=== PATIENT | female | born 1955 | race Caucasian/White ===

== ENCOUNTER 2019-01-30 07:32 | Inpatient (IN) ==
[2019-01-30] MEDS ORDERED: NORMAL SALINE 1,000 ML IV ONE (07:38)
[2019-01-30] MEDS ORDERED: ONDANSETRON HCL/PF 2 MG/ML VIAL IV ONE (07:38)
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
[2019-01-30 08:15] LABS: Hematocrit 37.4 % (37.0-47.0); Mean Cell Volume 113.3 fl (78-100); Mean Corpuscular Hemoglobin 39.4 pg (27-31); Mean Corpuscular Hgb Conc 34.8 g/dl (32-36); Neutrophil # 3.4 K/mm3 (1.3-6.0); Neutrophil % 43.7 % (42-75.0); Platelet Count 341 K/mm3 (150-450); Red Cell Distribution Width 13.9 % (11.5-14.0); White Blood Count 7.8 K/mm3 (4.0-10.5)
[2019-01-30 08:30] LABS: Albumin * 1.9 gm/dl (3.4-5.0); Anion Gap 13.3 mmol/L (6.8-13.8); BUN/Creatinine Ratio 16.7 (9.0-21.6); Bilirubin, Total 0.6 mg/dL (0.0-1.1); Ca. Corrected For Albumin 9.5 mg/dL (8.4-10.2); Calcium * 8.1 mg/dL (7.9-10.9); Carbon Dioxide 25.8 mmol/L (24-32.6); Potassium 4.1 mmol/L (3.4-4.6); Total Protein 5.4 gm/dL (6.2-8.2)
[2019-01-30 09:12] LABS: Troponin I Less than 0.017 ng/mL (0.00-0.10)
[2019-01-30 09:15] LABS: BNP * 386 pg/mL (5-325)
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
[2019-01-30 13:18] LABS: Partial Thrombolplastin Time 23.8 Seconds (24-32)
[2019-01-30 13:27] LABS: INR 1.29 INR (0.92-1.08); Prothrombin Time (Patient) 12.6 Seconds (9.1-10.7)
[2019-01-30 15:39] LABS: Peritoneal Fluid Uric Acid 4.8 mg/dL
[2019-01-30 15:52] LABS: Body Fluid WBC 63 /uL (0-1000)
[2019-01-30 15:53] LABS: Body Fluid Appearance SLIGHTLY CLOUDY (CLEAR); Body Fluid Color PALE YELLOW (COLORLESS)
[2019-01-30] MEDS: FUROSEMIDE 40 MG TABLET PO SCH (17:07)
--- NOTE | 2019-01-30 18:08 | ANES ---
Anesthesia Procedure Note Procedure Note: ANESTHESIA PROCEDURE NOTE Date of Procedure: [01/30/2019 Time of procedure: 10 AM. Performed by: MOE Sepulveda CRNA, MSN Preprocedure diagnosis: Mediastinal widening, severe hypertension, consider dissecting aortic aneurysm. Post procedure diagnosis: Same. Procedure: Venipuncture for IV access. Indications: Lack of venous access potential severe vascular impairment. Findings: See below. Details of the procedure: I was called to the emergency department with reports that Ms. Wheatley had only a 24-gauge peripheral IV intact and was in need of an 18-gauge IV for CT scanning purposes. No ultrasound machine was available at this time and the potential of a serious vascular emergency was looming. I explained the options to the emergency room staff and physician as well as Dr. Jeanette Mosley who was also present. Considering the gravity of the situation as presented, I opted for an internal jugular insertion of an 18-gauge IV catheter. After explaining the procedure to the patient, she was placed in slight Trendelenburg, the neck was prepped with chlorhexidine, and after the right carotid artery was identified, using a 27-gauge needle I injected approximately 0.5 mL of 1% lidocaine solution. After initial injection I used the 27-gauge needle as a seeker needle, with which I was easily able to withdraw blood, appearing to be venous in nature. The local needle and syringe was removed and an 18-gauge IV was inserted, I would estimate that the needle traveled to half of its distance under the skin prior to reaching the internal jugular. The IV was flushed with ease using saline solution and secured in place. I then reported the nature of the procedure and the positioning of the 18-gauge needle to the staff and attending ER physician. EBL: Minimal. Fluids: N/A. Specimen: N/A. Post procedure condition: The patient tolerated the procedure well. No compl ications were noted. Thank you for this consultation. Josef Pavon CRNA, ARNP, MSN
[2019-01-30 21:14] LABS: Urine Bilirubin 1 mg/dl (NEGATIVE); Urine Ketone Negative (NEGATIVE); Urine Nitrite Negative (NEGATIVE); Urine Protein Negative (NEGATIVE); Urine Specific Gravity <=1.005 SP.GR. (1.005-1.010); Urine Urobilinogen 4 EU/dl (NORMAL); Urine pH 5.5 pH (5.0-7.0)
[2019-01-30 21:30] LABS: Urine Appearance Clear (CLEAR); Urine Blood 5 /ul (NEGATIVE); Urine Color Yellow
[2019-01-30 21:31] LABS: Urine Bacteria TRACE; Urine RBC TRACE /hpf (0-5); Urine WBC None Seen /hpf (0-5)
--- NOTE | 2019-01-31 07:49 | PN ---
Subjective - Date and Time Seen Date: 01/31/19 Time: 07:34 Subjective Narrative: This morning, Chantelle complains of having a terrible night due to leg pain. It resolves on its own. She tried to eat some breakfast, but she lost her appetite. She denies chest pain, shortness of breath, abdominal pain. She reports not feeling any different after 1.9 L of fluid were taken off her abdomen yesterday in a paracentesis. Objective - Review of Systems Generalized/Overall Review: Reports: Weakness Respiratory: Denies: Cough, Shortness of Breath Cardiac: Denies: Chest Pain, Edema Abdominal: Reports: Other - decreased appetite. Denies: Nausea Genitourinary Symptoms: Reports: No Symptoms Reported - Vitals Vitals: Last Vital Signs Temp 36.6 C 01/31/19 07:08 Pulse 89 01/31/19 07:08 Resp 20 01/31/19 07:08 BP 125/81 01/31/19 07:08 Pulse Ox 99 01/31/19 07:08 - Abnormal Lab Findings Abnormal Lab Findings: Abnormal Lab Results 01/30/19 01/30/19 01/30/19 Range/Units 07:45 07:45 07:45 RBC 3.30 L (4.2-5.4) M/mm3 MCV 113.3 H (78-100) fl MCH 39.4 H (27-31) pg Monocytes % 10.2 H (0.0-9) % PT (9.1-10.7) Seconds INR (Anticoag Therapy) (0.92-1.08) INR PTT ([place]) (24-32) Seconds D-Dimer (0.19-0.49) ug/mL ALT 11 L (19-67) U/L B-Natriuretic Peptide 386 H (5-325) pg/mL Total Protein 5.4 L (6.2-8.2) gm/dL Albumin 1.9 L (3.4-5.0) gm/dl Amylase 23 L (25-115) U/L Urine Blood (NEGATIVE) /ul Urine Bilirubin (NEGATIVE) mg/dl Urine Urobilinogen (NORMAL) EU/dl 01/30/19 01/30/19 01/30/19 Range/Units 07:45 07:45 21:10 RBC (4.2-5.4) M/mm3 MCV (78-100) fl MCH (27-31) pg Monocytes % (0.0-9) % PT 12.6 H (9.1-10.7) Seconds INR (Anticoag Therapy) 1.29 H (0.92-1.08) INR PTT ([place]) 23.8 L (24-32) Seconds D-Dimer 1.05 H (0.19-0.49) ug/mL ALT (19-67) U/L B-Natriuretic Peptide (5-325) pg/mL Total Protein (6.2-8.2) gm/dL Albumin (3.4-5.0) gm/dl Amylase (25-115) U/L Urine Blood 5 H (NEGATIVE) /ul Urine Bilirubin 1 H (NEGATIVE) mg/dl Urine Urobilinogen 4 H (NORMAL) EU/dl Assessment/Plan - Problems/Diagnosis (1) Failure to thrive in adult Problem: Acute Narrative: She reports feeling safe at home, and feels like she is well taking care of. However, she had dried feces on her when she arrived to the ED yesterday. Has had a weight loss of 22 pounds since an office visit in April. Ensure has been added with meals. She reports having no appetite. Physical therapy evaluation pending. (2) Ascites Problem: Acute Narrative: New onset. She has no history of abdominal pathology thus far. CT done yesterday suggested cirrhosis, and will obtain liver ultrasound today. No increased WBC in the peritoneal fluid. Her serum ascites albumin gradient is 1.5, indicating portal hypertension is likely cause. Differential includes cirrhosis, hepatic failure, portal vein thrombosis, hypoalbuminemia, renal failure, cardiac source. US liver and hepatitis panel pending. Her platelet count was 341 yesterday, so fulminant liver failure is less likely. Her INR is slightly elevated 1.26, but would anticipate a level greater than 1.5 in fulminant liver failure. She has elevated urobilinogen, supporting cirrhosis. Office notes report she quit drinking in 1999. She has not been eating, and her albumin is low, and this is a very possible source, but would anticipate bilateral pleural effusions in this case. Cytology report from pathology pending, which will help with diagnosis. Cell count still pending. She avoids physicians, and I have concerns that if she were to go home after DC, she would not return for follow up. (3) Pleural effusion Problem: Acute Narrative: 40 mg Lasix has been started. Likely secondary to abdominal source. She denies shortness of breath, and is oxygenating well on room air. Recommend repeat chest x-ray during follow-up to ensure resolution. 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 Will restart 25 mg sertraline. (5) History of schizoaffective disorder Problem: Chronic (6) Hypoalbuminemia Problem: Acute (7) Compression fracture of L1 lumbar vertebra Problem: Chronic Narrative: She is not complaining of acute back pain right now so I suspect this compression fracture is chronic. She is complaining about some leg pain, and will do 325 mg Tylenol as needed.
[2019-01-31] MEDS ORDERED: SERTRALINE HCL 100 MG TABLET PO SCH (09:00)
[2019-01-31] MEDS: LISINOPRIL 10 MG TABLET PO SCH (10:05)
[2019-01-31] MEDS: FUROSEMIDE 40 MG TABLET PO SCH (10:06)
[2019-01-31] MEDS: SERTRALINE HCL 50 MG TABLET PO SCH (10:07)
[2019-01-31] MEDS: NICOTINE 14 MG PATC TD SCH (10:23)
[2019-01-31] MEDS: ENOXAPARIN SODIUM 40 MG/0.4 ML SYRG SC SCH (14:25)
[2019-02-01 07:15] LABS: Albumin * 1.5 gm/dl (3.4-5.0); Anion Gap 5.8 mmol/L (6.8-13.8); BUN/Creatinine Ratio 13.8 (9.0-21.6); Bilirubin, Total 0.4 mg/dL (0.0-1.1); Calcium * 7.3 mg/dL (7.9-10.9); Carbon Dioxide 28.1 mmol/L (24-32.6); Potassium 2.9 mmol/L (3.4-4.6); Total Protein 4.5 gm/dL (6.2-8.2)
[2019-02-01] MEDS ORDERED: ONDANSETRON HCL 4 MG TABLET PO PRN (08:57)
[2019-02-01] MEDS: NICOTINE 14 MG PATC TD SCH (11:26)
[2019-02-01] MEDS: LISINOPRIL 10 MG TABLET PO SCH (11:27)
[2019-02-01] MEDS: FUROSEMIDE 40 MG TABLET PO SCH (11:27)
[2019-02-01] MEDS: SERTRALINE HCL 50 MG TABLET PO SCH (11:27)
[2019-02-01] MEDS ORDERED: POTASSIUM CHLORIDE IN WATER 100 ML IV SCH (11:30)
[2019-02-01] MEDS: ENOXAPARIN SODIUM 40 MG/0.4 ML SYRG SC SCH (12:34)
[2019-02-01] MEDS: POTASSIUM CHLORIDE 10 MEQ TABLET.SA PO ONE ×2 (12:35→13:32)
[2019-02-01] MEDS: ACETAMINOPHEN 325 MG TABLET PO PRN (12:40)
[2019-02-01] MEDS: POTASSIUM CHLORIDE 40 MEQ/15 ML LIQUID PO SCH ×2 (13:51→21:35)
--- NOTE | 2019-02-01 14:13 | PN ---
Subjective - Date and Time Seen Date: 02/01/19 Time: 13:31 Subjective Narrative: Patient had some vomiting this morning. She has not been able to eat or drink much. Denies shortness of breath or abdominal pain. Her legs have been kicking when she's in bed. She was able to get up to the chair this morning. Extensive discussion had with her . She has been drinking 1/2 bottle of wine for years. her has been trying to get her to eat for weeks, but s he gets full quickly. He had been trying to get her to come in to be seen for at least a week and she refused. She didn't actually fall out of bed on the day of admission, but her leg was hurting, and she finally agreed to be seen. Objective - Review of Systems Generalized/Overall Review: Reports: Weakness. Denies: Fever Respiratory: Denies: Cough, Shortness of Breath Cardiac: Denies: Chest Pain, Edema Abdominal: Reports: Nausea, Vomiting. Denies: Constipation Genitourinary Symptoms: Reports: No Symptoms Reported Musculoskeletal Complaints: Reports: Other - leg pain Neurological: Reports: No Symptoms Reported Skin: Reports: Other - bruising of arms - Vitals Vitals: Last Vital Signs Temp 36.3 C 02/01/19 10:00 Pulse 76 02/01/19 12:38 Resp 16 02/01/19 10:00 BP 102/56 02/01/19 11:27 Pulse Ox 99 02/01/19 10:00 - Abnormal Lab Findings Abnormal Lab Findings: Abnormal Lab Results 02/01/19 Range/Units 06:55 Potassium 2.9 L D (3.4-4.6) mmol/L Anion Gap 5.8 L (6.8-13.8) mmol/L Calcium 7.3 L (7.9-10.9) mg/dL ALT 8 L (19-67) U/L Total Protein 4.5 L (6.2-8.2) gm/dL Albumin 1.5 L (3.4-5.0) gm/dl - Exam Constitutional: Present: Oriented x3, Cooperative, Elderly, Thin and frail, Looks Older than stated age - appears cachectic Respiratory: Present: normal breath sounds, no respiratory distress Cardiovascular/Chest: Present: regular rate, rhythm Abdomen: Present: soft, nontender Extremity: Absent: lower extremity edema Skin Exam: Present: other - petechiae of right upper arm Appearance: Present: disheveled Eye contact: Present: cooperative, good eye contact Assessment/Plan - Problems/Diagnosis (1) Cirrhosis Problem: Acute Qualifiers: Hepatic cirrhosis type: alcoholic cirrhosis Ascites presence: with ascites Qualified Code(s): K70.31 - Alcoholic cirrhosis of liver with ascites Narrative: Liver US shows a cirrhotic liver. Her reports chronic alcohol use, though she denies this. Lasix has been started. Her BP is a bit low, so will not yet start spironolactone. Will need to monitor for hepatocellular carcinoma. She does not appear encephalopathic. Her AST and ALT are not elevated, which could indicate advanced disease. However, bili and platelets are normal. INR slightly high at 1.26. Would expect a higher level in acute liver failure. Hepatitis panel pending. She avoids doctors, but would recommend hepatology referral after DC. MELD score of 9. Would recommend salt restriction, but her po intake is so poor that we will not currently salt restrict. (2) Failure to thrive in adult Problem: Acute Narrative: Patient lives at home, but has been having early satiety, unable to eat for several weeks. Will need to monitor electrolytes for refeeding syndrome, however her intake is still poor, this seems unlikely. She reports not getting out of bed for 6 months. Her has a WC at home. She has lost approximately 22 pounds since her office visit in April. She has thus far been unable to eat much, and will start maintenance NS at 90 cc/hr. She and her have agreed to NH placement after DC. She has never had a colonoscopy, and smokes a ppd. Malignancy is another possible source of her weight loss. (3) Pleural effusion Problem: Acute Narrative: Likely secondary to cirrhosis and hypoalbuminemia. She denies respiratory complaints. Will monitor for resolution. Is oxygenating well on room air. (4) Ascites Problem: Acute Narrative: Paracentesis done this admission. Analysis of peritoneal fluid is compatible with cirrhosis or heart failure. She denies SOB, has no lower extremity swelling or crackles on exam, making cirrhosis more likely. Her reports chronic alcohol use. (5) Hypokalemia Problem: Acute Narrative: She was given 10 mEq via IV, and will start 40 mEq KCl liquid bid. Recheck in am. 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 Will not restart. (7) Hypoalbuminemia Problem: Acute Narrative: Albumin is lower than yesterday, down to 1.5. Will need to monitor electrolytes for refeeding syndrome, and replace as needed. Mg and Phos pending for the morning. She reports early satiety. (8) History of schizoaffective disorder Problem: Chronic (9) Alcohol abuse Problem: Chronic Narrative: Will need to monitor for alcohol withdrawal. She denies alcohol use, but her reports she drinks 1/2 bottle of wine daily. Likely source of her cirrhosis. (10) Hypertension Problem: Chronic Narrative: BP was elevated after several office visits earlier this year, and 10 mg lisinopril was started. She hadn't been taking any meds prior to admission. Her BP was high initially, but today is low, at 102/56. Will hold antihypertensives. This could have been the source of her vomiting this mor mikel. (11) Compression fracture of L1 lumbar vertebra Problem: Chronic Narrative: Patient did not actually fall out of bed prior to this admission. compression fracture visible on CT is likely old.
[2019-02-01 14:17] LABS: Magnesium 1.5 mg/dL (1.2-2.8); Phosphorus 2.5 mg/dL (2.2-4.2)
[2019-02-01] MEDS: NORMAL SALINE 1,000 ML IV PRN (14:30)
[2019-02-02] MEDS: NORMAL SALINE 1,000 ML IV PRN ×2 (01:30→14:13)
[2019-02-02] MEDS: ACETAMINOPHEN 325 MG TABLET PO PRN (02:51)
[2019-02-02 06:14] LABS: Albumin * 1.5 gm/dl (3.4-5.0); Anion Gap 9.5 mmol/L (6.8-13.8); BUN/Creatinine Ratio 10.8 (9.0-21.6); Bilirubin, Total 0.3 mg/dL (0.0-1.1); Ca. Corrected For Albumin 8.4 mg/dL (8.4-10.2); Calcium * 6.7 mg/dL (7.9-10.9); Carbon Dioxide 25.2 mmol/L (24-32.6); Magnesium 1.4 mg/dL (1.2-2.8); Potassium 3.7 mmol/L (3.4-4.6); Total Protein 4.3 gm/dL (6.2-8.2)
[2019-02-02] MEDS: FUROSEMIDE 40 MG TABLET PO SCH (08:08)
[2019-02-02] MEDS: SERTRALINE HCL 50 MG TABLET PO SCH (08:09)
[2019-02-02] MEDS: POTASSIUM CHLORIDE 40 MEQ/15 ML LIQUID PO SCH ×2 (08:09→20:45)
--- NOTE | 2019-02-02 08:46 | PN ---
Subjective - Date and Time Seen Date: 02/02/19 Time: 09:23 Subjective Narrative: She reports having an appetite this morning, and ate eggs. She wasn't able to sleep last night because her legs were kicking. She had a BM yesterday. Is not able to walk, and needed the Amber to transfer to the chair this morning. Objective - Review of Systems Generalized/Overall Review: Reports: Weakness. Denies: Fever Respiratory: Denies: Cough, Shortness of Breath Cardiac: Denies: Chest Pain, Edema Abdominal: Denies: Vomiting Genitourinary Symptoms: Reports: No Symptoms Reported Musculoskeletal Complaints: Reports: Other - leg pain and kicking Neurological: Denies: Headache Skin: Reports: Dryness - Vitals Vitals: Last Vital Signs Temp 36.4 C 02/02/19 06:41 Pulse 82 02/02/19 08:08 Resp 16 02/02/19 06:41 BP 121/69 02/02/19 08:08 Pulse Ox 95 02/02/19 06:41 - Abnormal Lab Findings Abnormal Lab Findings: Abnormal Lab Results 02/02/19 Range/Units 05:45 Chloride 109 H (97-106) mmol/L Calcium 6.7 L (7.9-10.9) mg/dL Phosphorus 2.0 L D (2.2-4.2) mg/dL ALT 10 L (19-67) U/L Total Protein 4.3 L (6.2-8.2) gm/dL Albumin 1.5 L (3.4-5.0) gm/dl - Exam Constitutional: Present: Alert, Cooperative, Elderly, Thin and frail, Looks Older than stated age - appears cachectic Respiratory: Present: lungs clear, no respiratory distress. Absent: crackles, rales Cardiovascular/Chest: Present: regular rate, rhythm Abdomen: Present: soft, nontender Extremity: Absent: lower extremity edema Skin Exam: Present: other - dry, flaky skin on legs. Right IJ has been removed Neurologic: Present: alert Eye contact: Present: good eye contact Assessment/Plan - Problems/Diagnosis (1) Cirrhosis Problem: Acute Qualifiers: Hepatic cirrhosis type: alcoholic cirrhosis Ascites presence: with ascites Qualified Code(s): K70.31 - Alcoholic cirrhosis of liver with ascites Narrative: Liver US shows a cirrhotic liver. Her reports chronic alcohol use, though she denies this. Lasix has been started, which she appears to be tolerating. Will add 25 mg spironolactone also. Will need to monitor for hepatocellular carcinoma. She does not appear encephalopathic. Her AST and ALT are not elevated, which could indicate advanced disease. However, bili and platelets are normal. INR slightly high at 1.29. Would expect a higher level in acute liver failure. Hepatitis panel pending. She avoids doctors, but would recommend hepatology referral after DC. MELD score of 9. Would recommend salt restriction, but her po intake is so poor that we will not currently salt restrict. (2) Failure to thrive in adult Problem: Acute Narrative: Patient lives at home, but has been having early satiety, unable to eat for several weeks. Today is day 3 of hospitalization, and only just felt like eating this morning. She is having electrolyte shifts, suggesting refeeding syndrome. She reports not getting out of bed for 6 months. Her has a WC at home. She has lost approximately 22 pounds since her office visit in [place]. Will continue maintenance NS at 90 cc/hr, since her po intake is still low. She and her have agreed to NH placement after DC. Briefly discussed possibility that should she be unable to maintain nutrition po, she may require a feeding tube. She has never had a colonoscopy, and smokes a ppd. Malignancy is another possible source of her weight loss. (3) Ascites Problem: Acute Qualifiers: Ascites type: due to alcoholic cirrhosis Qualified Code(s): K70.31 - Alcoholic cirrhosis of liver with ascites Narrative: 40 mg lasix started on 01/31, and will start 25 mg spironolactone today. BP this morning has been 121/69, so she should be able to tolerate it. Prior to this admission, she stopped taking all meds, so there is concern this will happen again after DC if she were to go home. (4) Hypokalemia Problem: Acute Narrative: She was given IV potassium yesterday, and po liquid potassium was also started. K+ improved from 2.9 yesterday to 3.7 today. Possibly due to refeeding syndrome. She is describing leg kicking at night, and suspect this is due to her electrolyte abnormalities. Continue telemetry. (5) Agoraphobia with panic attacks Problem: Chronic Narrative: She denies current symptoms of depression, and does not feel like she needs sertraline. Will not restart. (6) Hypoalbuminemia Problem: Acute Narrative: She was finally able to eat eggs this morning. Albumin has not changed from yesterday at 1.5. Continue ensure with meals. She reports early satiety. (7) History of schizoaffective disorder Problem: Chronic (8) Alcohol abuse Problem: Chronic Narrative: Will need to monitor for alcohol withdrawal. She denies alcohol use, but her reports she drinks 1/2 bottle of wine daily. Likely source of her cirrhosis. Will administer 100 mg thiamine IV daily for 3 days. (9) Malnutrition, calorie Problem: Acute Narrative: Patient's po intake was very poor prior to admission, but she has not started to eat. If unable to maintain po nutrition, will need to discuss feeding tube placement. Likely due to chronic alcohol use. (10) Hypocalcemia Problem: Acute Narrative: Poor po intake. Will replace with calcium carbonate twice a day, and recheck in am. (11) Hypophosphatemia Problem: Acute Narrative: Will replace with neutraphos. Due to poor po intake. Recheck in am. She had not been eating prior to admission, and her po intake is still poor, but she may be showing signs of refeeding syndrome with significant electrolyte abnormalities. (12) Refeeding syndrome Problem: Acute Narrative: Will replete electrolytes po if she is able, and recheck daily CMP, Mg, and Phos. (13) Hypertension Problem: Chronic Narrative: BP was elevated after several office visits earlier this year, and 10 mg lisinopril was started. She hadn't been taking any meds prior to admission. Her BP was high initially this admission, and was low yesterday at 102/56. Will stop lisinopril. Spironolactone has been started for her cirrhosis, and will need to monitor to ensure her BP does not decrease significantly. (14) Pleural effusion Problem: Acute Narrative: Lasix has been started, and lung sounds are clear this morning. She has not required oxygen supplementation. Can repeat an xray if she has respiratory complaints. (15) Compression fracture of L1 lumbar vertebra Problem: Chronic Narrative: Patient did not actually fall out of bed prior to this admission. Compression fracture visible on admission CT is likely old.
[2019-02-02] MEDS: CALCIUM CARBONATE 500 MG TAB.CHEW PO SCH ×2 (09:52→20:46)
[2019-02-02] MEDS: NAPH,MB-DB/K PH,MBDB 1 PACKET PACKET PO SCH (09:52)
[2019-02-02] MEDS: THIAMINE HCL 100 MG in NORMAL SALINE 50 ML IV SCH (09:52)
[2019-02-02] MEDS: SPIRONOLACTONE 25 MG TABLET PO SCH (09:52)
[2019-02-02] MEDS: NICOTINE 14 MG PATC TD SCH (09:53)
[2019-02-02] MEDS: ENOXAPARIN SODIUM 40 MG/0.4 ML SYRG SC SCH (12:40)
[2019-02-03] MEDS: NORMAL SALINE 1,000 ML IV PRN (02:30)
[2019-02-03] MEDS: FUROSEMIDE 40 MG TABLET PO SCH (08:24)
[2019-02-03] MEDS: SERTRALINE HCL 50 MG TABLET PO SCH (08:24)
[2019-02-03] MEDS: CALCIUM CARBONATE 500 MG TAB.CHEW PO SCH ×2 (08:26→20:24)
[2019-02-03] MEDS: NAPH,MB-DB/K PH,MBDB 1 PACKET PACKET PO SCH (08:26)
[2019-02-03] MEDS: POTASSIUM CHLORIDE 40 MEQ/15 ML LIQUID PO SCH (08:26)
[2019-02-03] MEDS: SPIRONOLACTONE 25 MG TABLET PO SCH (08:26)
[2019-02-03] MEDS: THIAMINE HCL 100 MG in NORMAL SALINE 50 ML IV SCH (09:07)
--- NOTE | 2019-02-03 09:50 | PN ---
Jayda Note - Interim Date: 02/03/19 Time: 07:45 Narrative: 02/03/19 09:47 Patient declined lab draws this morning. She would not answer questions, but would state "your voice is scary." She stated she wanted to go home. She would not participate in questioning to help determine capacity. Call the phone number listed in her chart for her , but this number has been disconnected. Psych consult has been placed. If she is able to make her own decisions, and is declining lab draws and physical therapy, and wants to go home, she can sign an AMA form. No abnormalities in vitals this morning.
[2019-02-03] MEDS: NICOTINE 14 MG PATC TD SCH (09:56)
[2019-02-03 10:44] LABS: Albumin * 1.7 gm/dl (3.4-5.0); Anion Gap 11.3 mmol/L (6.8-13.8); BUN/Creatinine Ratio 10.4 (9.0-21.6); Bilirubin, Total 0.4 mg/dL (0.0-1.1); Ca. Corrected For Albumin 9.7 mg/dL (8.4-10.2); Calcium * 8.2 mg/dL (7.9-10.9); Carbon Dioxide 25.3 mmol/L (24-32.6); Magnesium 1.4 mg/dL (1.2-2.8); Phosphorus 2.6 mg/dL (2.2-4.2); Potassium 4.6 mmol/L (3.4-4.6)
--- NOTE | 2019-02-03 12:23 | CONS ---
- Reason for consultation (1) Alcohol abuse Date of Service: 02/03/19 (2) Depressive disorder Date of Service: 02/03/19 (3) Generalized anxiety disorder Date of Service: 02/03/19 HPI - General Date of Service: 02/03/19 Source: patient, RN/MD, RN notes reviewed, old records Exam Limitations: no limitations - History of Present Illness Timing/Duration: unsure Associated Symptoms: loss of appetite, malaise, weakness Allergies/Adverse Reactions: Allergies Sulfa (Sulfonamide Antibiotics) Allergy (Severe, Verified 01/30/19 07:38) hives, breathing problems quetiapine [From Seroquel] Adverse Reaction (Intermediate, Verified 01/30/19 07:38) RLS venlafaxine Adverse Reaction (Intermediate, Verified 01/30/19 07:38) N/V Home Medications: Home Medications Medication Instructions Recorded Last Taken NK 01/30/19 Unknown Medications - Medications Current Medications: Current Medications Acetaminophen (Tylenol) 325 mg PO Q6H PRN PRN Reason: Mild pain (pain scale 1-3) Stop: 03/02/19 08:00 Last Admin: 02/02/19 02:51 Dose: 325 mg Documented by: Calcium Carbonate/Glycine (Tums) 500 mg PO BID [facility] Stop: 03/04/19 09:01 Last Admin: 02/03/19 08:26 Dose: 500 mg Documented by: Enoxaparin Sodium (Lovenox) 40 mg SC Q24H [facility] Stop: 03/02/19 13:31 Last Admin: 02/02/19 12:40 Dose: Not Given Documented by: Furosemide (Lasix) 40 mg PO DAILY [facility] Stop: 03/01/19 17:01 Last Admin: 02/03/19 08:24 Dose: 40 mg Documented by: Thiamine HCl 100 mg/ Sodium (Chloride) 51 mls @ 100 mls/hr IV DAILY [facility] Stop: 02/05/19 09:46 Last Infusion: 02/03/19 09:38 Dose: Infused Documented by: Lisinopril (Zestril) 10 mg PO DAILY [facility] Stop: 03/02/19 09:01 Last Admin: 02/01/19 11:27 Dose: 10 mg Documented by: Nicotine (Nicoderm) 14 mg TD Q24H [facility] Stop: 03/02/19 10:16 Last Admin: 02/03/19 09:56 Dose: 14 mg Documented by: Ondansetron HCl (Zofran) 4 mg PO Q8H PRN PRN Reason: Nausea And Vomiting Stop: 03/03/19 08:58 Last Admin: 02/01/19 09:18 Dose: 4 mg Documented by: Potassium Chloride (Potassium Chloride 40 Meq/15ml Liquid) 40 meq PO BID [facility] Stop: 03/03/19 13:31 Last Admin: 02/03/19 08:26 Dose: 40 meq Documented by: Potassium Phos/Sodium Phos (Neutra-Phos Packet) 1 each PO DAILY [facility] Stop: 03/04/19 09:16 Last Admin: 02/03/19 08:26 Dose: 1 each Documented by: Sertraline HCl (Zoloft) 25 mg PO DAILY [facility] Stop: 03/02/19 09:01 Last Admin: 02/03/19 08:24 Dose: 25 mg Documented by: Spironolactone (Aldactone) 25 mg PO DAILY [facility] Stop: 03/04/19 09:01 Last Admin: 02/03/19 08:26 Dose: 25 mg Documented by: Review of Systems - Review of Systems Generalized/Overall Review: Present: Weakness, Malaise, Fatigue, Weight loss Neurological: Present: Anxiety, Emotional Problems, Weakness Physical Examination - Exam Narrative: Patient states that she has been weak and has had no appetite. Has not been out of bed in months. Voices a desire to walk again. Denies any depression and anxiety but is tearful. Voices feelings of hopelessness and worthlessness. Has a loss of interest in things that she enjoys. Has not been taking any of her medications because she is not sure what any of them are for. States that cares for her and if she does not get placed in a usp close to home, she would rather go home. Denies any alcohol use although, according to notes, states that she does drink daily. States that she does not remember the doctor coming in this morning and was told that she was not nice to her. Is quite upset over this and wants to apologize to the doctor. Is not sure why she does not remember talking to her. States that alarms were going next door all night and she did not sleep well. Denies any hallucinations or delusions but staff report that she was seeing a dog in her room last night. Has established with Brianne Cazares for psychiatric care in April. Was prescribed Sertraline 25 mg and was to follow up in 4 weeks but did not return for follow up care. Discussed importance of appropriate follow up to ensure medications are doing what they should be doing. Discussed R/B/SE of medications. Will increase Sertraline to 50 mg and schedule follow up with Brianne after discharge. Patient voices understanding. Vital Signs: Vital Signs - Last Taken Temp 36.3 C 02/03/19 10:12 Pulse 88 02/03/19 10:12 Resp 20 02/03/19 10:12 BP 130/86 02/03/19 10:12 Pulse Ox 99 02/03/19 10:12 O2 Oxygen Delivery Method Room Air Constitutional: Present: Alert, Oriented x3, Cooperative, Thin and frail, Looks Older than stated age Appearance: Present: appropriate appearance, appropriate insight Eye contact: Present: cooperative, good eye contact, normal speech Thoughts: Present: normal thought pattern, no apparent hallucination, normal mood /affect. Absent: delusions, paranoid - Results and Findings: Lab/Microbiology results last 24 hrs: Abnormal/Pending Laboratory Last 24 HRS 02/03/19 10:10 Sodium 143 H Plasma Sodium 143 H Chloride 111 H ALT 14 L Total Protein 5.0 L Albumin 1.7 L Culture 01/30/19 14:40 Body Fluid Culture - Final Peritoneal Fluid No Growth - Assessments/Findings (1) Alcohol abuse Problem: Chronic (2) Depressive disorder Problem: Acute (3) Generalized anxiety disorder Problem: Acute
[2019-02-03] MEDS: ENOXAPARIN SODIUM 40 MG/0.4 ML SYRG SC SCH (13:32)
--- NOTE | 2019-02-03 18:29 | PN ---
Subjective - Date and Time Seen Date: 02/03/19 Time: 11:30 Subjective Narrative: Patient was seen initially at 7:30 this morning, but was not cooperative. She was seen again at 11:30, and was much more willing to answer questions. She denies SOB, abdominal pain, or edema. She was happy about eating a hamburger last night for dinner. Objective - Review of Systems Generalized/Overall Review: Reports: Weakness Cardiac: Denies: Chest Pain, Edema Abdominal: Reports: Constipation. Denies: Nausea Genitourinary Symptoms: Reports: No Symptoms Reported Musculoskeletal Complaints: Reports: No Symptoms Reported - Vitals Vitals: Last Vital Signs Temp 36.6 C 02/03/19 15:21 Pulse 94 02/03/19 15:21 Resp 18 02/03/19 15:21 BP 129/86 02/03/19 15:21 Pulse Ox 100 02/03/19 15:21 - Abnormal Lab Findings Abnormal Lab Findings: Abnormal Lab Results 02/03/19 Range/Units 10:10 Sodium 143 H (132-142) mmol/L Plasma Sodium 143 H (130-142) mmol/L Chloride 111 H (97-106) mmol/L ALT 14 L (19-67) U/L Total Protein 5.0 L (6.2-8.2) gm/dL Albumin 1.7 L (3.4-5.0) gm/dl - Exam Constitutional: Present: Alert, Elderly, Thin and frail, Looks Older than stated age - appears cachectic Respiratory: Present: normal breath sounds, no respiratory distress. Absent: rhonchi, wheezing Cardiovascular/Chest: Present: regular rate, rhythm Abdomen: Present: soft, nontender Extremity: Absent: lower extremity edema Eye contact: Present: cooperative, good eye contact Assessment/Plan - Problems/Diagnosis (1) Cirrhosis Problem: Acute Qualifiers: Hepatic cirrhosis type: alcoholic cirrhosis Ascites presence: with ascites Qualified Code(s): K70.31 - Alcoholic cirrhosis of liver with ascites Narrative: Liver US shows a cirrhotic liver. Her reports chronic alcohol use, though she denies this. Lasix and spironolactone have been started, which she appears to be tolerating. Will need to monitor for hepatocellular carcinoma. She does not appear encephalopathic. Her AST and ALT are not elevated, which could indicate advanced disease. However, bili and platelets are normal. INR slightly high at 1.29. Would expect a higher level in acute liver failure. Hepatitis panel pending. She avoids doctors, but would recommend hepatology referral after DC. MELD score of 9. Would recommend salt restriction, but her po intake is so poor that we will not currently salt restrict. Anticipate discharge in 24 hours, as the source of her cirrhosis is known, and her electrolytes have been replaced. She is awaiting acceptance at a nursing facility. Recommend she DC to a facility for nursing care, as her needs are likely more than her is able to provide. (2) Failure to thrive in adult Problem: Acute Narrative: Patient lives at home, but has been having early satiety, unable to eat for several weeks. She has been eating more here than she usually does at home, which may have been due to the cirrhosis and peritoneal fluid. She is having electrolyte shifts, suggesting refeeding syndrome. She reports not getting out of bed for 6 months. Her has a WC at home. She has lost approximately 22 pounds since her office visit in April. She and her have agreed to NH placement after DC. Briefly discussed possibility that should she be unable to maintain nutrition po, she may require a feeding tube. She has never had a colonoscopy, and smokes a ppd. Malignancy is another possible source of her weight loss. (3) Ascites Problem: Acute Qualifiers: Ascites type: due to alcoholic cirrhosis Qualified Code(s): K70.31 - Alcoholic cirrhosis of liver with ascites Narrative: Continue 40 mg lasix and 25 mg spironolactone. [place] ratio of 100:40 spironolactone: lasix in cirrhosis, and will increase to this if she is able. (4) Hypokalemia Problem: Resolved Narrative: Potassium increased to 4.6 today after IV and po replacement. Will reduce po replacement to once daily. Spironolactone has also been started, which will increase her potassium level. (5) Agoraphobia with panic attacks Problem: Chronic Narrative: She was evaluated by psych today, and appreciate their assistance. 50 mg sertraline has been restarted. (6) Hypoalbuminemia Problem: Acute Narrative: Secondary to alcohol use and decreased po intake. Her albumin did improve slightly this morning, though is still very low, and she is at risk for 3rd spacing. (7) History of schizoaffective disorder Problem: Chronic (8) Alcohol abuse Problem: Chronic Narrative: Probable source of her cirrhosis. She does not appear to be having withdrawal symptoms. Recommend alcohol cessation. (9) Malnutrition, calorie Problem: Acute Narrative: She appears cachectic on exam. Likely starvation related, due to her alcohol intake and poor nutritional intake. Her BMI is less than 18. She has been eating here since admission. (10) Hypocalcemia Problem: Resolved Narrative: Resolved after po replacement. Continue tums. (11) Hypophosphatemia Problem: Resolved Narrative: resolved after po replacement. (12) Refeeding syndrome Problem: Suspected Narrative: Her electrolytes corrected quickly. She was not taking in much po prior to admission, and this has improved. Will need to continue to monitor electrolytes. (13) Hypertension Problem: Chronic Narrative: BP has not been significantly high for most of this admission. Previously prescribed lisinopril not currently needed. Spironolactone has been started for her cirrhosis. (14) Pleural effusion Problem: Acute Narrative: Likely due to ascites. She has clear lung sounds on exam today, and has not required supplemental oxygen. (15) Compression fracture of L1 lumbar vertebra Problem: Chronic
[2019-02-04 05:57] LABS: Albumin * 1.4 gm/dl (3.4-5.0); BUN/Creatinine Ratio 17.2 (9.0-21.6); Bilirubin, Total 0.4 mg/dL (0.0-1.1); Ca. Corrected For Albumin 9.2 mg/dL (8.4-10.2); Calcium * 7.4 mg/dL (7.9-10.9); Carbon Dioxide 26.5 mmol/L (24-32.6); Magnesium 1.4 mg/dL (1.2-2.8); Potassium 3.5 mmol/L (3.4-4.6); Total Protein 4.1 gm/dL (6.2-8.2)
--- NOTE | 2019-02-04 07:46 | DS ---
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 (6) Hypoalbuminemia Problem: Acute (7) History of schizoaffective disorder Problem: Chronic (8) Alcohol abuse Problem: Chronic (9) Malnutrition, calorie Problem: Acute (10) Hypocalcemia Problem: Resolved (11) Hypophosphatemia Problem: Resolved (12) Refeeding syndrome Problem: Suspected (13) Hypertension Problem: Chronic (14) Pleural effusion Problem: Resolved (15) Compression fracture of L1 lumbar vertebra Problem: Chronic (16) Severe protein-calorie malnutrition Problem: Acute Date of Discharge:: 02/04/19 Description of Stay: Patient with PMHx of agoraphobia with panic disorder, schizoaffective disorder, hypertension was brought to the ED by her after rolling out of bed. She has been had poor intake and has not left her bed for 6 months. She had new onset right pleural effusion and ascites. Paracentesis was performed, which was suggestive of cirrhosis, and US liver also showed cirrhosis. After couple days of admission, her admitted that she drinks daily. She tolerated Lasix and spironolactone, and will continue 40 mg lasix and 25 mg sprinolactone for now. Will need to monitor after DC for hepatocellular carcinoma. Her AST and ALT are not elevated, which could indicate advanced disease. However, bili and platelets are normal. INR slightly high at 1.29. Would expect a higher level in acute liver failure. Hepatitis panel pending. She avoids doctors, but would recommend hepatology referral after DC. MELD score of 9. Would recommend salt restriction, but her po intake is so poor that we will not currently salt restrict. She did not appear to withdraw from alcohol during her stay. She had several electrolyte abnormalities suggesting possible refeeding syndrome. She was hypokalemic, hypocalcemic, and also had hypophosphatemia. We will need to monitor these after discharge. Patient lives at home, but has been having early satiety, unable to eat for several weeks. She has been eating more here than she usually does at home, which may have been due to the cirrhosis and peritoneal fluid. She is having electrolyte shifts, suggesting refeeding syndrome. She reports not getting out of bed for 6 months. Her has a WC at home. She has lost approximately 22 pounds since her office visit in April. Briefly discussed possibility that should she be unable to maintain nutrition po, she may require a feeding tube. She has signs of severe protein calorie malnutrition, with muscle wasting of her face, arms, legs. Her BMI is less than 18. She has never had a colonoscopy, and smokes a ppd. Malignancy is another possible source of her weight loss. Procedures Performed: see notes below - paracentesis Results and Findings: Lab Pending Results 01/30/19 07:45: WBC 7.8, RBC 3.30 L, Hgb 13.0, Hct 37.4, MCV 113.3 H, MCH 39.4 H, MCHC 34.8, RDW 13.9, Plt Count 341, MPV 9.0, Immature Gran % (Auto) 0.30, Immature Gran # (Auto) 0.02, Neutrophils % 43.7, Lymphocytes % 43.4, Monocytes % 10.2 H, Eosinophils % 1.8, Basophils % 0.6, Nucleated RBC % 0.0, Neutrophils # 3.4, Lymphocytes # 3.37, Monocytes # 0.8, Eosinophils # 0.1, Absolute Basophils 0.1 01/30/19 07:45: Sodium 138, Plasma Sodium 138, Potassium 4.1, Chloride 103, Carbon Dioxide 25.8, Anion Gap 13.3, BUN 10, Creatinine 0.60, Est GFR (Non-Af Amer) 107, BUN/Creatinine Ratio 16.7, Random Glucose 89, Calcium 8.1, Calcium Adj for Albumin 9.5, Total Bilirubin 0.6, AST 30, ALT 11 L, Alkaline Phosphatase 125, Total Protein 5.4 L, Albumin 1.9 L, Amylase 23 L, Lipase 190 01/30/19 07:45: Troponin I Less than 0.017, B-Natriuretic Peptide 386 H 01/30/19 07:45: D-Dimer 1.05 H 01/30/19 07:45: PT 12.6 H, INR (Anticoag Therapy) 1.29 H, PTT (Elmer) 23.8 L 01/30/19 14:40: Peritoneal Tot Protein 0.8, Peritoneal Albumin 0.3, Peritoneal LDH 37, Peritoneal Glucose 93, Peritoneal Amylase 6, Peritoneal Cholesterol 19, Peritoneal Triglycerid 34, Peritoneal Uric Acid 4.8 01/30/19 14:40: Fluid Color Pale yellow, Fluid Appearance Slightly cloudy, Fluid WBC 63, Fluid RBC 0.0, Fluid Neutrophils 40, Fluid Lymphocytes 60 01/30/19 21:10: Urine Color Yellow, Urine Appearance Clear, Urine pH 5.5, Ur Specific Bullock <=1.005, Urine Protein Negative, Urine Glucose (UA) Negative, Urine Ketones Negative, Urine Blood 5 H, Urine Nitrate Negative, Urine Bilirubin 1 H, Urine Ictotest Negative, Urine Urobilinogen 4 H, Ur Leukocyte Esterase N egative, Urine RBC Trace, Urine WBC None seen, Ur Epithelial Cells 0-5, Urine Bacteria Trace, Urine Culture Comments No culture indicated 02/01/19 06:55: Sodium 136, Plasma Sodium 136, Potassium 2.9 L D, Chloride 105, Carbon Dioxide 28.1, Anion Gap 5.8 L, BUN 8, Creatinine 0.58, Est GFR (Non-Af Amer) 111, BUN/Creatinine Ratio 13.8, Random Glucose 90, Calcium 7.3 L, Calcium Adj for Albumin 9.0, Total Bilirubin 0.4, AST 21, ALT 8 L, Alkaline Phosphatase 86, Total Protein 4.5 L, Albumin 1.5 L 02/01/19 : Phosphorus 2.5, Magnesium 1.5 02/02/19 05:45: Sodium 140, Plasma Sodium 140, Potassium 3.7 D, Chloride 109 H, Carbon Dioxide 25.2, Anion Gap 9.5, BUN 9, Creatinine 0.83, Est GFR (Non-Af Amer) 73 D, BUN/Creatinine Ratio 10.8, Random Glucose 90, Calcium 6.7 L, Calcium Adj for Albumin 8.4, Phosphorus 2.0 L D, Magnesium 1.4, Total Bilirubin 0.3, AST 26, ALT 10 L, Alkaline Phosphatase 79, Total Protein 4.3 L, Albumin 1.5 L 02/03/19 10:10: Sodium 143 H, Plasma Sodium 143 H, Potassium 4.6 D, Chloride 111 H, Carbon Dioxide 25.3, Anion Gap 11.3, BUN 8, Creatinine 0.77, Est GFR (Non-Af Amer) 80, BUN/Creatinine Ratio 10.4, Random Glucose 107, Calcium 8.2, Calcium Adj for Albumin 9.7, Phosphorus 2.6 D, Magnesium 1.4, Total Bilirubin 0.4, AST 27, ALT 14 L, Alkaline Phosphatase 90, Total Protein 5.0 L, Albumin 1.7 L 02/04/19 05:33: Sodium 142, Plasma Sodium 142, Potassium 3.5 D, Chloride 110 H, Carbon Dioxide 26.5, Anion Gap 9.0, BUN 10, Creatinine 0.58, Est GFR (Non-Af Amer) 111 D, BUN/Creatinine Ratio 17.2, Random Glucose 84, Calcium 7.4 L, Calcium Adj for Albumin 9.2, Phosphorus 3.0 D, Magnesium 1.4, Total Bilirubin 0.4, AST 21, ALT 10 L, Alkaline Phosphatase 72, Total Protein 4.1 L, Albumin 1.4 L Discharge Location: Home Disposition: Home self-care Condition: Fair Discharge Activity: Activity as tolerated Discharge Diet: General/regular food Referrals: Shirin Stubbs DO [Primary Care Provider] - One Week Additional Patient Instructions (free text): -Please make TCM appointment unless pen[facility]entiary discharge, or if following up with outside provider. Thank you! Sandra @ [phone] or Shirin at [facility]. Prescriptions (Any new or edited meds): Spironolactone [Aldactone] 25 mg PO DAILY #90 tablet Furosemide [Lasix] 40 mg PO DAILY #90 tablet Calcium Carbonate [Tums] 500 mg PO BID #1 bottle Sertraline HCl [Zoloft] 50 mg PO DAILY #90 tablet Complete Home Medications List: Complete Home Medication List: Calcium Carbonate [Tums] 500 mg PO BID #1 bottle 02/04/19 Furosemide [Lasix] 40 mg PO DAILY #90 tablet 02/04/19 Sertraline HCl [Zoloft] 50 mg PO DAILY #90 tablet 02/04/19 Spironolactone [Aldactone] 25 mg PO DAILY #90 tablet 02/04/19
[2019-02-04] MEDS ORDERED: SERTRALINE HCL 50 MG TABLET PO SCH (09:00)
[2019-02-04] MEDS ORDERED: POTASSIUM CHLORIDE 40 MEQ/15 ML LIQUID PO SCH (09:00)
[2019-02-04] MEDS: FUROSEMIDE 40 MG TABLET PO SCH (09:15)
[2019-02-04] MEDS: CALCIUM CARBONATE 500 MG TAB.CHEW PO SCH (09:15)
[2019-02-04] MEDS: SPIRONOLACTONE 25 MG TABLET PO SCH (09:16)
[2019-02-04] MEDS: NAPH,MB-DB/K PH,MBDB 1 PACKET PACKET PO SCH (09:16)
[2019-02-04] MEDS: THIAMINE HCL 100 MG in NORMAL SALINE 50 ML IV SCH (09:31)
[2019-02-04] MEDS: NICOTINE 14 MG PATC TD SCH (12:54)
[2019-02-04 15:16] VITALS: BP 120/84
[2019-02-16 03:35] LABS: Hepatitis B Surface Antigen NON-REACTIVE; Hepatitis C Antibody NON-REACTIVE
== END 2019-02-04 15:50 | disposition home or self-care (01) | DRG 432 ==
LOC: ER 07:32 → MS 12:23
PROVIDERS: ADMIT Family Medicine; ATTEND Family Medicine
DX: F25.0 Schizoaffective disorder, bipolar type; F10.10 Alcohol abuse, uncomplicated; F17.210 Nicotine dependence, cigarettes, uncomplicated; E83.39 Other disorders of phosphorus metabolism; E88.09 Other disorders of plasma-protein metabolism, not elsewhere classified; Z68.1 Body mass index [BMI] 19.9 or less, adult; E43 Unspecified severe protein-calorie malnutrition; I10 Essential (primary) hypertension; R53.1 Weakness; F40.01 Agoraphobia with panic disorder; K70.31 Alcoholic cirrhosis of liver with ascites; E83.51 Hypocalcemia; R62.7 Adult failure to thrive; E87.6 Hypokalemia; E87.8 Other disorders of electrolyte and fluid balance, not elsewhere classified; M48.46XA Fatigue fracture of vertebra, lumbar region, initial encounter for fracture; F31.4 Bipolar disorder, current episode depressed, severe, without psychotic features
CPT/HCPCS: 36415; 49083; 71010; 71045; 71275; 72170; 74019; 74020; 74175; 76705; 80053; 80074; 81001; 82042; 82150; 82465; 82945; 82947; 83519; 83615; 83690; 83735; 83880; 84100; 84155; 84157; 84478; 84484; 84560; 85025; 85379; 85610; 85730; 87070; 87205; 88108; 89051; 93005; 96361; 96374; 97110; 97161; 99285; J2405; Q9967